=== PATIENT | male | born 1990 | race Caucasian/White ===

== ENCOUNTER 2019-07-22 16:42 | Emergency (ER) | payer OTHER ==
--- NOTE | 2019-07-22 17:51 | EDM.PDOC ---
ED HPI GENERAL MEDICAL PROBLEM - General Chief Complaint: Abdominal Pain Stated Complaint: POSS HERNIA Time Seen by Provider: 07/22/19 17:37 Source of Information: Reports: Patient History Limitations: Reports: No Limitations - History of Present Illness INITIAL COMMENTS - FREE TEXT/NARRATIVE: The patient has some swelling post hernia repair. He had left inguinal hernia repair by Dr Toledo at [place] in [place]. He has been doing good but he noticed some swelling to his left testicle the past couple of days. He has no more pain. He has no nausea, vomiting, dysuria or hematuria. Onset: Gradual Duration: Day(s): Location: Reports: Other (Left testicle) Severity: Moderate Improves with: Reports: None Worsens with: Reports: None Associated Symptoms: Reports: No Other Symptoms - Related Data Allergies Allergy/AdvReac Type Severity Reaction Status Date / Time No Known Allergies Allergy Verified 07/22/19 17:25 Home Meds: Home Meds Hydrocodone/Acetaminophen [Hydrocodon-Acetaminophen 5-325] 1 tab PO Q6H PRN [History] Past Medical History - Past Surgical History GI Surgical History: Reports: Hernia, Inguinal Social & Family History - Tobacco Use Smoking Status *Q: Current Every Day Smoker Years of Tobacco use: 12 Packs/Tins Daily: 1 - Caffeine Use Caffeine Use: Reports: Soda - Recreational Drug Use Recreational Drug Use: No ED ROS GENERAL - Review of Systems Review Of Systems: See Below Constitutional: Reports: No Symptoms HEENT: Reports: No Symptoms Respiratory: Reports: No Symptoms Cardiovascular: Reports: No Symptoms Endocrine: Reports: No Symptoms GI/Abdominal: Reports: Other (Left inguinal hernia repair) : Reports: Other (Left testicle swelling) ED EXAM, GI/ABD - Physical Exam Exam: See Below Exam Limited By: No Limitations General Appearance: Alert, No Apparent Distress Ears: Normal External Exam Nose: Normal Inspection Head: Atraumatic, Normocephalic Neck: Normal Inspection Respiratory/Chest: No Respiratory Distress (Male) Exam: Other (Mild to moderate edema to the left testicle. No pain upon palpation.) Course - Vital Signs Last Recorded V/S: Last Vital Signs Temp 98.4 F 07/22/19 17:22 Pulse 88 07/22/19 17:22 Resp 16 07/22/19 17:22 BP 147/95 H 07/22/19 17:22 Pulse Ox 96 07/22/19 17:22 - Re-Assessments/Exams Free Text/Narrative Re-Assessment/Exam: 07/22/19 17:49 The patient has edema from the surgery. Departure - Departure Time of Disposition: 17:50 Disposition: Home, Self-Care 01 Condition: Good Clinical Impression: Swelling of left testicle - Discharge Information *PRESCRIPTION DRUG MONITORING PROGRAM REVIEWED*: Not Applicable *COPY OF PRESCRIPTION DRUG MONITORING REPORT IN PATIENT CARLOS: Not Applicable Referrals: PCP,None [Primary Care Provider] - Additional Instructions: This is swelling from the surgery. Ice your scrotum for 15 minutes 3 times per day for 2 days. Follow up with your doctor as needed. Please return if you are worse. Sepsis Event Note - Evaluation Sepsis Screening Result: No Definite Risk - Focused Exam Vital Signs: Vital Signs Temp Pulse Resp BP Pulse Ox 07/22/19 17:22 98.4 F 88 16 147/95 H 96 Date Exam was Performed: 07/22/19 Time Exam was Performed: 17:46
== END 2019-07-22 18:18 | disposition home or self-care (01) ==
LOC: JD.ED 16:42
DX: N50.89 Other specified disorders of the male genital organs (principal); F17.210 Nicotine dependence, cigarettes, uncomplicated
CPT/HCPCS: 99283